=== PATIENT | male | born 1980 | race Caucasian/White ===

== ENCOUNTER 2016-12-04 16:49 | Inpatient (IN) | payer OTHER ==
[~2016-12-04] VITALS: Ht 182.9 cm; Wt 137.7 kg
[~2016-12-04 16:49] MED LIST: ADDERALL10 MG PO; ADDERALL20 MG PO; ADDERALL30 MG PO; ADULT LOW DOSE81 M1 PO; AMBIEN10 MG PO; AMPHETAMINE SAL20 MG PO; ANXIETY MED; ATIVAN0.5 MG PO; AZITHROMYCIN250 MG1 PO; BENTYL10 MG PO; Carafate PO; DIAZEPAM2 MG PO; DILAUDID2 MG PO; EFFEXOR XR75 MG PO; FLEXERIL10 MG PO; INDOCIN50 MG PO; KLONOPIN0.5 M1 PO; KLONOPIN2 MG; KLONOPIN2 MG PO; KlonoPIN PO; LEXAPRO5 MG PO; LOMOTIL TABLET1 EACH PO; MOTRIN800 MG PO; NAPROSYN500 MG PO; NOHOMEMEDS; OMEPRAZOLE40 M1 PO; OXYCODONE HCL5 MG PO; PERCOCET 5/31 TABLET PO; Protonix PO; TOPROL XL100 MG PO; ULTRAM50 MG PO; VALIUM5 MG PO; Valium PO; Vicodin,Norco 5/325 PO; ZOFRAN ODT4 MG PO; ZOFRAN4 MG PO; ZOLPIDEM TARTRA10 MG PO
[2016-12-04 17:16] LABS: EOSINOPHIL (%) 3.6 % (0-5); EOSINOPHIL COUNT 0.4 K/uL (0-0.3); HEMATOCRIT 46.3 % (38.0-50.0); IMMATURE GRANULOCYTE (%) 0.2 % (0.0-0.7); IMMATURE GRANULOCYTE COUNT 0.2 K/uL; LYMPHOCYTE COUNT 2.9 K/uL (1.0-2.8); MCH 29.4 PG (29.0-34.0); MEAN PLAT.VOLUME 10.1 uM^3 (9.0-12.4); MONOCYTE (%) 7.1 % (3-12); MONOCYTE COUNT 0.7 K/uL (0-0.8); NEUTROPHIL (%) 58.6 % (45-76); NEUTROPHIL COUNT 5.7 K/uL (1.8-6.4); PLATELET COUNT 315 K/uL (156-360); RBC DIS.WIDTH-CV 13.5 % (11.8-14.6); RBC DIS.WIDTH-SD 40.9 % (39-53); RED BLOOD COUNT 5.51 M/uL (4.00-5.50); WHITE BLOOD COUNT 9.6 K/uL (4.1-10.2)
[2016-12-04 17:30] LABS: PTT 29.3 (25-32)
[2016-12-04 17:31] LABS: AMYLASE 72 IU/L (1-118)
[2016-12-04 17:32] LABS: CHLORIDE 104 mEq/L (99-109); POTASSIUM 3.7 mEq/L (3.7-5.4); SODIUM 140 mEq/L (136-147)
[2016-12-04 17:33] LABS: GLUCOSE 96 mg/dL (70-99)
[2016-12-04 17:35] LABS: ANION GAP 10 MEQ/L (2-14)
[2016-12-04 17:36] LABS: SERUM ETHYL ALCOHOL < 10 mg/dL
[2016-12-04 17:37] LABS: GFR ESTIMATE (CALCULATED) > 59 mL/min/
[2016-12-04 17:38] LABS: UREA NITROGEN (BUN) 15 mg/dL (9-23)
[2016-12-04 17:40] LABS: LIPASE 35 U/L (1.0-51.0)
[2016-12-04 17:43] LABS: TROP-I INTERPRETATION NEGATIVE; TROPONIN-I < 0.01 ng/mL (0.0-0.30)
[2016-12-04 20:32] LABS: ADD MIUA? NO; BILIRUBIN NEGATIVE; BLOOD NEGATIVE; COLOR YELLOW ((YELLOW)); GLUCOSE (STRIP) NEGATIVE; KETONES NEGATIVE; LEUKOCYTES NEGATIVE; NITRITE NEGATIVE; PROTEIN (STRIP) NEGATIVE; SPECIFIC GRAVITY 1.037 (1.000-1.030); UCUL ADDED? NO
[2016-12-04 20:36] LABS: AMPHETAMINE NEGATIVE (500 ng/mL); BENZODIAZEPINES NEGATIVE (150 ng/mL); COCAINE NEGATIVE (150 ng/mL); METHADONE NEGATIVE (200 ng/mL); METHAMPHETAMINE NEGATIVE (500 ng/mL); OPIATES (MORPHINE) NEGATIVE (100 ng/mL); PHENCYCLIDINE NEGATIVE (25 ng/mL); THC CANNABINOIDS NEGATIVE (50 ng/mL); TRICYCLIC ANTIDEPRESSANTS NEGATIVE (300 ng/mL)
[2016-12-04 20:37] LABS: BARBITURATES NEGATIVE (200 ng/mL); INTERNAL CONTROLS VALID? YES; OXYCODONE NEGATIVE (100 ng/mL); PROPOXYPHENE NEGATIVE (300 ng/mL)
[2016-12-04 23:30] VITALS: BP 120/81
[2016-12-04 23:39] VITALS: BP 124/72
[2016-12-05] VITALS (24 sets, daily range): BP systolic 93–132; BP diastolic 55–82
[2016-12-05 00:48] LABS: METH RESISTANT S AUREUS PCR NEGATIVE (NEGATIVE)
[2016-12-05 00:49] LABS: PROBE CHECK PASS; SPECIMEN PROCESSING CONTROL PASS
[2016-12-05 01:44] LABS: PROTHROMBIN TIME 10.3 (9.2-11.2); PTT 28.4 (25-32)
[2016-12-05 16:09] LABS: HDL CHOLESTEROL 25 MG/DL (Desirable>=40); LDL CHOLESTEROL 103 mg/dL (Desirable<100); NON-HDL CHOLESTEROL 140 mg/dL (Desirable<160); TOTAL CHOLESTEROL 165 mg/dL (Desirable<200); TRIGLYCERIDES 184 MG/DL (Normal: <150)
[2016-12-05 16:18] LABS: Estimated Average Glucose 108 mg/dL (70-123); HEMOGLOBIN A1c (GLYCOHEMOGLOB) 5.4 % HGB (Below 5.7)
[2016-12-06] VITALS (11 sets, daily range): BP systolic 92–155; BP diastolic 47–94
[2016-12-06 06:44] LABS: ALKALINE PHOSPHATASE 69 IU/L (3-129); ANION GAP 5 MEQ/L (2-14); CHLORIDE 105 MEQ/L (99-109); GFR ESTIMATE (CALCULATED) > 59 mL/min/; GLUCOSE 100 mg/dL (70-99); POTASSIUM 4.2 MEQ/L (3.7-5.4); SAMPLE HEMOLYSIS CHECK 0; SAMPLE ICTERIC CHECK 0; SAMPLE LIPEMIA CHECK 0; SODIUM 137 MEQ/L (136-147); TOTAL BILIRUBIN 0.7 MG/DL (0.0-1.0); UREA NITROGEN (BUN) 14 mg/dL (9-23)
[2016-12-06 10:39] LABS: MAGNESIUM 2.1 mg/dl (1.3-2.7)
[2016-12-06 18:26] LABS: CK-MB 0.8 ng/mL (0.0-4.9); TROP-I INTERPRETATION NEGATIVE; TROPONIN-I < 0.01 ng/mL (0.0-0.30)
[2016-12-06 18:39] LABS: CREATINE KINASE 69 IU/L (1-294); TOTAL CK 69 IU/L (1-294)
[2016-12-07] VITALS (9 sets, daily range): BP systolic 100–134; BP diastolic 70–84
[2016-12-07 00:41] LABS: TROP-I INTERPRETATION NEGATIVE; TROPONIN-I < 0.01 ng/mL (0.0-0.30)
[2016-12-07 00:42] LABS: CREATINE KINASE 79 IU/L (1-294); TOTAL CK 79 IU/L (1-294)
[2016-12-07 00:50] LABS: CK-MB 0.7 ng/mL (0.0-4.9)
[2016-12-07 04:05] LABS: PROTEIN C FUNCTIONAL ACTIVITY+ 119 % (70-180)
[2016-12-07 06:08] LABS: HEMATOCRIT 44.9 % (38.0-50.0); MCH 29.9 PG (29.0-34.0); MCHC 34.3 G/DL (30.0-36.0); MCV 87.2 FL (86-99); MEAN PLAT.VOLUME 10.6 uM^3 (9.0-12.4); PLATELET COUNT 277 K/uL (156-360); RBC DIS.WIDTH-CV 13.6 % (11.8-14.6); RBC DIS.WIDTH-SD 42.8 % (39-53); RED BLOOD COUNT 5.15 M/uL (4.00-5.50); WHITE BLOOD COUNT 7.2 K/uL (4.1-10.2)
[2016-12-07 06:37] LABS: ANION GAP 9 MEQ/L (2-14); CHLORIDE 104 MEQ/L (99-109); CREATINE KINASE 68 IU/L (1-294); GFR ESTIMATE (CALCULATED) > 59 mL/min/; GLUCOSE 101 mg/dL (70-99); POTASSIUM 4.3 MEQ/L (3.7-5.4); SAMPLE HEMOLYSIS CHECK 0; SAMPLE ICTERIC CHECK 0; SAMPLE LIPEMIA CHECK 0; SODIUM 139 MEQ/L (136-147); TOTAL CK 68 IU/L (1-294); TROP-I INTERPRETATION NEGATIVE; TROPONIN-I < 0.01 ng/mL (0.0-0.30); UREA NITROGEN (BUN) 16 mg/dL (9-23)
[2016-12-07 07:48] LABS: CK-MB 0.6 ng/mL (0.0-4.9)
[2016-12-07 12:07] LABS: Protein S, Free 140 % normal (57-171)
[2016-12-07 13:18] LABS: CREATINE KINASE 73 IU/L (1-294); TOTAL CK 73 IU/L (1-294)
[2016-12-07 13:22] LABS: TROP-I INTERPRETATION NEGATIVE; TROPONIN-I < 0.01 ng/mL (0.0-0.30)
[2016-12-07 13:38] LABS: CK-MB 0.5 ng/mL (0.0-4.9)
[2016-12-08 04:00] VITALS: BP 114/55
[2016-12-08 05:39] LABS: HEMATOCRIT 46.7 % (38.0-50.0); MCH 30.3 PG (29.0-34.0); MCHC 35.3 G/DL (30.0-36.0); MCV 85.8 FL (86-99); MEAN PLAT.VOLUME 10.8 uM^3 (9.0-12.4); PLATELET COUNT 340 K/uL (156-360); RBC DIS.WIDTH-CV 13.2 % (11.8-14.6); RED BLOOD COUNT 5.44 M/uL (4.00-5.50)
[2016-12-08 05:40] LABS: WHITE BLOOD COUNT 16.5 K/uL (4.1-10.2)
[2016-12-08 05:44] LABS: ANION GAP 15 MEQ/L (2-14); CHLORIDE 102 MEQ/L (99-109); GFR ESTIMATE (CALCULATED) > 59 mL/min/; POTASSIUM 4.6 MEQ/L (3.7-5.4); SAMPLE HEMOLYSIS CHECK 0; SAMPLE ICTERIC CHECK 0; SAMPLE LIPEMIA CHECK 0; SODIUM 138 MEQ/L (136-147); UREA NITROGEN (BUN) 20 mg/dL (9-23)
[2016-12-08 05:47] LABS: GLUCOSE 208 mg/dL (70-99)
[2016-12-08 07:00] VITALS: BP 130/76
[2016-12-08 11:59] VITALS: BP 134/77
[2016-12-08 16:30] VITALS: BP 129/74
[2016-12-08 20:00] VITALS: BP 131/65
[2016-12-08 23:55] VITALS: BP 106/58
[2016-12-09 04:00] VITALS: BP 137/71
[2016-12-09 08:30] VITALS: BP 122/61
[2016-12-09 12:00] VITALS: BP 126/70
[2016-12-09 16:48] VITALS: BP 126/66
[2016-12-09 19:57] VITALS: BP 139/53
[2016-12-10] VITALS (7 sets, daily range): BP systolic 97–123; BP diastolic 54–74
[2016-12-10 06:33] LABS: HEMATOCRIT 44.3 % (38.0-50.0); MCH 28.9 PG (29.0-34.0); MCV 87.7 FL (86-99); MEAN PLAT.VOLUME 10.4 uM^3 (9.0-12.4); PLATELET COUNT 263 K/uL (156-360); RBC DIS.WIDTH-CV 13.8 % (11.8-14.6); RBC DIS.WIDTH-SD 43.5 % (39-53); RED BLOOD COUNT 5.05 M/uL (4.00-5.50)
[2016-12-10 07:09] LABS: ANION GAP 8 MEQ/L (2-14); CHLORIDE 104 MEQ/L (99-109); GFR ESTIMATE (CALCULATED) > 59 mL/min/; POTASSIUM 4.4 MEQ/L (3.7-5.4); SAMPLE HEMOLYSIS CHECK 0; SAMPLE ICTERIC CHECK 0; SAMPLE LIPEMIA CHECK 0; SODIUM 139 MEQ/L (136-147); UREA NITROGEN (BUN) 25 mg/dL (9-23)
[2016-12-10 07:17] LABS: GLUCOSE 100 mg/dL (70-99)
[2016-12-11 05:21] VITALS: BP 107/52
[2016-12-11 07:57] VITALS: BP 111/65
[2016-12-11 11:18] VITALS: BP 128/89
[2016-12-11] MEDS ORDERED: OXYCODONE HCL5 MG PO (13:57)
[2016-12-11] MEDS ORDERED: LOPRESSOR25 MG PO (13:57)
[2016-12-11] MEDS ORDERED: PRAVASTATIN SOD80 MG PO (13:57)
[2016-12-11] MEDS ORDERED: AMOX TR-K CLV1 EAC4 PO (13:57)
[2016-12-11] MEDS ORDERED: ASPIR-LOW81 MG PO (13:57)
[2016-12-11] MEDS ORDERED: TYLENOL REGULA325 MG PO (13:58)
[2016-12-11] MEDS ORDERED: ESCITALOPRAM OX10 MG PO (13:58)
[2016-12-11] MEDS ORDERED: FLORASTOR250 MG PO (13:58)
[2016-12-11] MEDS ORDERED: LIDOCAINE700 MG TD (13:59)
[2016-12-11] MEDS ORDERED: ZOFRAN4 MG PO (16:54)
[2016-12-11] MEDS ORDERED: MIRALAX17 GM PO (16:55)
[2016-12-11] MEDS ORDERED: COLACE100 MG PO (16:56)
[2016-12-11] MEDS ORDERED: DULCOLAX5 MG PO (16:57)
[2016-12-11] MEDS ORDERED: ULTRAM50 MG PO (16:58)
[2016-12-11] MEDS ORDERED: MAGNESIUM400 M1 PO (16:59)
[2016-12-11] MEDS ORDERED: PEPCID20 MG PO (16:59)
== END 2016-12-11 15:16 | DRG 103 ==
LOC: EME → EDBD 16:49 → 4EAST 21:42 → EDOF 21:42 → 4WEST 21:42 → 4EAST 12-07 05:44 → 5SOUTH 12-10 19:47
PROVIDERS: Emergency Medicine; Internal Medicine Nephrology; Internal Medicine Pulmonary Disease; Physician Assistant; Surgery
DX: R51 Headache (principal); F33.9 Major depressive disorder, recurrent, unspecified; Z68.41 Body mass index [BMI] 40.0-44.9, adult; H53.2 Diplopia; Z82.3 Family history of stroke; R20.0 Anesthesia of skin; M62.81 Muscle weakness (generalized); F43.23 Adjustment disorder with mixed anxiety and depressed mood; E66.9 Obesity, unspecified; E78.5 Hyperlipidemia, unspecified; F41.1 Generalized anxiety disorder; G89.29 Other chronic pain; J32.3 Chronic sphenoidal sinusitis; J32.2 Chronic ethmoidal sinusitis; R94.31 Abnormal electrocardiogram [ECG] [EKG]; R07.89 Other chest pain; Z83.3 Family history of diabetes mellitus; Z82.49 Family history of ischemic heart disease and other diseases of the circulatory system
CPT/HCPCS: 70450; 70496; 70498; 70551; 71010; 72141; 80048; 80053; 80061; 80069; 81003; 81241 90; 82150; 82550; 82550 91; 82553; 83036; 83690; 83735; 84100; 84484; 85025; 85027; 85303 90; 85305 90; 85306 90; 85610; 85730; 86850; 86900; 86901; 87641; 92507 GN; 92523 GN; 93005; 94799; 97530 GO; 97530 GP; 97532 GN; 99281; 99285; G0480; J2270; J2405; J2930; J2997

== ENCOUNTER 2016-12-11 14:22 | Inpatient (IN) | payer OTHER ==
[~2016-12-11] VITALS: Ht 182.9 cm; Wt 130.9 kg
[~2016-12-11 14:22] MED LIST changes: +AMOX TR-K CLV1 EAC4 PO; +ASPIR-LOW81 MG PO; +ESCITALOPRAM OX10 MG PO; +FLORASTOR250 MG PO; +LIDOCAINE700 MG TD; +LOPRESSOR25 MG PO; +PRAVASTATIN SOD80 MG PO; +TYLENOL REGULA325 MG PO
[2016-12-11 15:29] VITALS: BP 127/76
[2016-12-11] MEDS ORDERED: ZOFRAN4 MG PO (16:54)
[2016-12-11] MEDS ORDERED: MIRALAX17 GM PO (16:55)
[2016-12-11] MEDS ORDERED: COLACE100 MG PO (16:56)
[2016-12-11] MEDS ORDERED: DULCOLAX5 MG PO (16:57)
[2016-12-11] MEDS ORDERED: ULTRAM50 MG PO (16:58)
[2016-12-11] MEDS ORDERED: MAGNESIUM400 M1 PO (16:59)
[2016-12-11] MEDS ORDERED: PEPCID20 MG PO (16:59)
[2016-12-12 00:15] VITALS: BP 101/57
[2016-12-12 05:21] VITALS: BP 98/54
[2016-12-12 06:54] LABS: HEMATOCRIT 46.1 % (38.0-50.0); MCH 28.9 PG (29.0-34.0); MCHC 34.1 G/DL (30.0-36.0); MCV 84.7 FL (86-99); MEAN PLAT.VOLUME 10.7 uM^3 (9.0-12.4); PLATELET COUNT 276 K/uL (156-360); RBC DIS.WIDTH-CV 13.3 % (11.8-14.6); RBC DIS.WIDTH-SD 40.3 % (39-53); RED BLOOD COUNT 5.44 M/uL (4.00-5.50); WHITE BLOOD COUNT 11.3 K/uL (4.1-10.2)
[2016-12-12 07:19] LABS: ALKALINE PHOSPHATASE 81 IU/L (3-129); ANION GAP 8 MEQ/L (2-14); CHLORIDE 101 MEQ/L (99-109); GFR ESTIMATE (CALCULATED) > 59 mL/min/; GLUCOSE 110 mg/dL (70-99); POTASSIUM 3.7 MEQ/L (3.7-5.4); SAMPLE HEMOLYSIS CHECK 0; SAMPLE ICTERIC CHECK 0; SAMPLE LIPEMIA CHECK 0; SODIUM 136 MEQ/L (136-147); UREA NITROGEN (BUN) 22 mg/dL (9-23)
[2016-12-12 07:21] LABS: TOTAL BILIRUBIN 0.9 MG/DL (0.0-1.0)
[2016-12-12 15:11] VITALS: BP 137/62
[2016-12-13 05:05] VITALS: BP 115/56
[2016-12-13 15:53] VITALS: BP 124/74
[2016-12-14 05:25] VITALS: BP 107/62
[2016-12-14] MEDS ORDERED: PRAVASTATIN SOD80 MG PO (12:12)
[2016-12-14] MEDS ORDERED: OXYCODONE HCL5 MG PO (12:12)
[2016-12-14] MEDS ORDERED: LIDOCAINE700 MG TD (12:12)
[2016-12-14] MEDS ORDERED: ESCITALOPRAM OX10 MG PO (12:12)
[2016-12-14] MEDS ORDERED: LOPRESSOR25 MG PO (12:12)
[2016-12-14] MEDS ORDERED: ASPIR-LOW81 MG PO (12:12)
[2016-12-14] MEDS ORDERED: PEPCID20 MG PO (12:12)
[2016-12-14] MEDS ORDERED: MAGNESIUM400 M1 PO (12:12)
== END 2016-12-14 14:05 | DRG 945 ==
LOC: 3WEST 14:22
PROVIDERS: Physical Medicine & Rehabilitation Pain Medicine
PROC: F07M0ZZ Range of Motion and Joint Mobility Treatment of Musculoskeletal System - Whole Body (ICD-10-PCS; principal; 2016-12-11)
DX: R53.1 Weakness (principal); I63.9 Cerebral infarction, unspecified; G81.94 Hemiplegia, unspecified affecting left nondominant side; M48.02 Spinal stenosis, cervical region; J32.4 Chronic pansinusitis; F41.1 Generalized anxiety disorder; E66.9 Obesity, unspecified; F43.20 Adjustment disorder, unspecified; R07.89 Other chest pain; R20.9 Unspecified disturbances of skin sensation; E78.5 Hyperlipidemia, unspecified; R51 Headache; Z68.39 Body mass index [BMI] 39.0-39.9, adult
CPT/HCPCS: 80053; 85027; 97110 GO; 97112 GO; 97530 GP